=== PATIENT | female | born 1975 | race African-American/Black ===

== ENCOUNTER 2022-03-29 20:38 | Emergency (ER) | payer BC, OTHER ==
[~2022-03-29] VITALS: Ht 172.7 cm; Wt 99.8 kg
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
--- NOTE | 2022-03-30 06:20 | NUR ---
PT WAS BEING DISCHARGED WHEN PT VERBALIZED THAT SHE IS SUICIDAL AND WANT VOLUNTARY ADMISSION TO PSYCH. MADE AWARE. ORDERED RECEIVED FOR PSYCH WORK UP.
--- NOTE | 2022-03-30 06:23 | NUR ---
URINE COLLECTED AND SENT TO LAB.
--- NOTE | 2022-03-30 06:24 | NUR ---
COVID SWAB DONE AND SENT TO LAB
[2022-03-30 08:45] LABS: BASOPHILS % (AUTO) 0.4 % (0.0-2.0); HEMATOCRIT 43 % (33-45); HEMOGLOBIN 14.2 g/dL (11.5-14.8); LYMPHOCYTES # (AUTO) 0.9 K/uL (0.8-4.8); LYMPHOCYTES % (AUTO) 23.1 % (20.0-44.0); MEAN CORPUSCULAR HGB CONC 33 g/dl (31.0-36.0); MEAN CORPUSCULAR VOLUME 87 fL (82-100); MONOCYTES # (AUTO) 0.5 K/uL (0.1-1.30); MONOCYTES % (AUTO) 12.2 % (2.0-12.0); NEUTROPHILS # (AUTO) 2.3 K/uL (1.8-8.9); NEUTROPHILS % (AUTO) 57.3 % (43.0-81.0); PLATELET COUNT (AUTO) 239 K/uL (150-450); RED BLOOD CELL COUNT(AUTO) 4.89 MIL/uL (4.0-5.2)
[2022-03-30 08:50] LABS: BILIRUBIN,URINE NEGATIVE (NEGATIVE); COLOR,URINE YELLOW (YELLOW); LEUKOCYTE ESTERASE ,URINE NEGATIVE (NEGATIVE); NITRITE, URINE NEGATIVE (NEGATIVE); PROTEIN,URINE TRACE mg/dl (NEGATIVE); UGLUCOSE NEGATIVE (NEGATIVE); UROBILINOGEN,URINE 0.2 EU/dL (0.2)
[2022-03-30 08:58] LABS: CARBON DIOXIDE 27 mmol/L (21-32); CHLORIDE 102 mmol/L (98-107); GLUCOSE 152 mg/dL (74-106); POTASSIUM 3.3 mmol/L (3.5-5.1); SODIUM SERUM 136 mmol/L (136-145); UREA NITROGEN, BLOOD 14 mg/dL (7-18)
[2022-03-30 09:04] LABS: ALANINE AMINOTRANSFERASE 29 U/L (12-78); ALBUMIN 3.2 g/dL (3.4-5.0); ALCOHOL, BLOOD < 3 mg/dL (0-0); ALKALINE PHOSPHATASE 86 U/L (46-116); ASPARTATE AMINOTRANSFERASE 22 U/L (15-37); BILIRUBIN,DIRECT 0.1 mg/dL (0.0-0.2); BILIRUBIN,TOTAL 0.3 mg/dL (0.2-1.0); TOTAL PROTEIN, SERUM 7.2 g/dL (6.4-8.2)
[2022-03-30 09:11] LABS: ACETAMINOPHEN 0 ug/ml (10-30)
[2022-03-30 09:15] LABS: RBC,URINE 0-2 /HPF (0-2)
[2022-03-30 09:16] LABS: BACTERIA,URINE Moderate /HPF (None Seen); MUCUS,URINE Few /LPF (None Seen)
[2022-03-30] MEDS ORDERED: POTASSIUM CHLORIDE 20 MEQ TAB.PRT.SR PO ONE ×2 (10:30→10:31)
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
--- NOTE | 2022-03-30 15:32 | NUR ---
Voluntary psych referrals faxed to: [facility] FAX: [phone] PHONE:[phone] [facility] tel: ;1 fax:[phone] [facility] tel:[phone]; 4 FAX: [phone] [facility] TEL: [phone] fax: [phone] [facility] tel:[phone] fax: [phone]
[2022-03-30] MEDS ORDERED: LORAZEPAM 1 MG TABLET ONE (17:28)
[2022-03-30] MEDS ORDERED: LORAZEPAM 1 MG TABLET PO ONE (17:30)
--- NOTE | 2022-03-30 17:34 | NUR ---
SANDWICH AND SODA PROVIDED. TOLERATED WELL.
--- NOTE | 2022-03-31 03:24 | NUR ---
CALLED [facility] TO SEE IF PT CAN BE ADMITTED VOLUNARILY BUT PATIENT IS ON "DO NOT ADMIT". STILL NO ACCEPTANCE FROM THE OTHER FACILITIES THAT CUTTER OPERATOR ASBESTOS SHINGLE REQUESTED A A FROM. PT IN BED RESTING. NO DISTRESS NOTED
--- NOTE | 2022-03-31 09:33 | NUR ---
REECE followed up with referrals faxed to: [facility] FAX: [phone] PHONE:[phone] --"NO BEDS" [facility] tel: ;1 fax:[phone]--"NO BEDS" [facility] tel:[phone]; 4 FAX: [phone]--"NO BEDS" [facility] TEL: [phone] fax: [phone] --[facility] tel:[phone] fax: [phone] --"NO BEDS"
--- NOTE | 2022-03-31 12:40 | NUR ---
[facility] TEL: [phone] REFAXED vitals to fax: [phone]
[2022-03-31] MEDS ORDERED: QUETIAPINE FUMARATE 100 MG TABLET PO SCH (13:30)
[2022-03-31] MEDS ORDERED: diphenhydrAMINE HCL 50 MG/ML VIAL ONE (14:09)
[2022-03-31] MEDS ORDERED: HALOPERIDOL LACTATE INJ 5 MG/ML VIAL ONE (14:09)
[2022-03-31] MEDS ORDERED: LORAZEPAM INJ 2 MG/ML VIAL ONE (14:10)
--- NOTE | 2022-03-31 14:13 | NUR ---
pt is agitated, yelling. dr brady made aware. medicated as ordered. see emar.
[2022-03-31] MEDS ORDERED: HALOPERIDOL LACTATE INJ 5 MG/ML VIAL IM ONE (14:30)
[2022-03-31] MEDS ORDERED: diphenhydrAMINE HCL 50 MG/ML VIAL IM ONE (14:30)
[2022-03-31] MEDS ORDERED: LORAZEPAM INJ 2 MG/ML VIAL IM ONE (14:30)
[2022-03-31] MEDS ORDERED: CEPHALEXIN MONOHYDRATE 500 MG CAPSULE PO ONE ×2 (21:00→22:11)
[2022-03-31] MEDS ORDERED: QUETIAPINE FUMARATE 100 MG TABLET ONE (22:10)
--- NOTE | 2022-04-01 00:11 | NUR ---
PT CALM AND SLEEPING IN BED. SAFETY MEASURES IN PLACE. ALL NEEDS MET AT THIS TIME.
--- NOTE | 2022-04-01 08:50 | NUR ---
Per [facility] TEL: [phone] and per Maxine winston she will call when bed becomes available.
--- NOTE | 2022-04-01 10:01 | NUR ---
Per [facility] TEL: [phone] and per intake,no bed available at thi time, pt. requires private room.
--- NOTE | 2022-04-01 11:15 | NUR ---
pt provided w lunch tray. vss. will continue to monitor.
--- NOTE | 2022-04-01 12:49 | NUR ---
pt was medically and psych cleared. was provided w/ transportation. denies si/hi. discharged in stable condition.
[2022-04-01 12:51] VITALS: BP 146/82
== END 2022-04-01 12:51 | disposition home or self-care (01) ==
LOC: ER 20:39 → EDSEX 20:39 → ER 04-01 12:51
DX: K59.00 Constipation, unspecified (principal); R45.851 Suicidal ideations; E87.6 Hypokalemia; R73.9 Hyperglycemia, unspecified; Z59.00 Homelessness unspecified; Z20.822 Contact with and (suspected) exposure to COVID-19
CPT/HCPCS: 99285; 85025; 80048; 80076; 84703; 81001; 36415; 87426; 80143; 80320; 80307; 87077; 87086; 87186; 96372 ×2; C9803; J2060; J1200; J1630; G0480; J7030